=== PATIENT | male | born 1950 | race Two or more races ===

== ENCOUNTER 2020-06-26 13:00 | Emergency (ER) | payer OTHER ==
[~2020-06-26] VITALS: Ht 180.3 cm; Wt 78.9 kg
[2020-06-26] MEDS ORDERED: IVERMECTIN3 MG PO (19:02)
[2020-06-26] MEDS ORDERED: VITAMIN D3-ALO1 EACH PO (19:02)
[2020-06-26] MEDS ORDERED: ACETAMINOPHEN650 M2 PO (19:02)
[2020-06-26] MEDS ORDERED: MEDROLPACK PO (19:02)
[2020-06-26] MEDS ORDERED: AZITHROMYCIN500 MG PO (19:02)
[2020-06-26] MEDS ORDERED: MELATONIN10 M2 PO (19:02)
[2020-06-26] MEDS ORDERED: ZINC SULFATE220 M2 PO (19:02)
[2020-06-26] MEDS ORDERED: VITAMIN C WIT1000 MG PO (19:02)
== END 2020-06-26 19:49 | disposition home or self-care (01) ==
LOC: ER 13:00
DX: U07.1 COVID-19 (principal); B34.9 Viral infection, unspecified

== ENCOUNTER 2023-11-29 02:58 | Emergency (ER) | payer OTHER ==
[~2023-11-29] VITALS: Ht 180.3 cm; Wt 77.1 kg
[~2023-11-29 02:58] MED LIST: ACETAMINOPHEN650 M2 PO; AZITHROMYCIN500 MG PO; IVERMECTIN3 MG PO; MEDROLPACK PO; MELATONIN10 M2 PO; VITAMIN C WIT1000 MG PO; VITAMIN D3-ALO1 EACH PO; ZINC SULFATE220 M2 PO
[2023-11-29] MEDS ORDERED: GUAIFENESIN 200 MG/10 ML BLIST.PACK PO STA (05:00)
[2023-11-29] MEDS ORDERED: GUAIFENESIN 200 MG/10 ML BLIST.PACK PO ONE (05:05)
[2023-11-29 06:39] LABS: ABG PH 7.458 (7.35-7.45); ABG pCO2 34.1 mmHg (35-45); BASE EXCESS 0.4 mmol/l; BICARBONATE 23.6 mmol/l (23-25); Tco2 24.7 mmol/l; o2 21 %
[2023-11-29 06:40] LABS: allen test SATISFACTORY; puncture site RADIAL LEFT
[2023-11-29] MEDS ORDERED: PAXLOVID 150-11 EAC1 PO (07:00)
[2023-11-29] MEDS ORDERED: ZYNCOF 20-400120 ML PO (07:00)
== END 2023-11-29 07:26 | disposition home or self-care (01) ==
LOC: ER → EDBD 02:59 → ER 02:59
PROVIDERS: General Practice
DX: U07.1 COVID-19 (principal); R05.9 Cough, unspecified; I10 Essential (primary) hypertension

== ENCOUNTER → 2025-03-06 | Emergency (ER) | payer OTHER ==
[~2025-03-06] VITALS: Ht 180.3 cm; Wt 79.4 kg
[~2025-03-06] MED LIST changes: +PAXLOVID 150-11 EAC1 PO; +ZYNCOF 20-400120 ML PO
[2025-03-06 05:47] VITALS: BP 150/80; O2SAT 99
== END | disposition left against medical advice (07) ==
LOC: ER 05:32
DX: Z53.21 Procedure and treatment not carried out due to patient leaving prior to being seen by health care provider (principal)